=== PATIENT | male | born 1955 ===

== ENCOUNTER 2017-02-18 13:06 | Emergency (ER) | payer OTHER ==
[2017-02-18 13:12] VITALS: PULSE 82; RESP 16; TEMP 98.1; O2SAT 100
--- NOTE | 2017-02-18 13:49 | ED PDOC ---
HPI: Back Time Seen by Provider: 02/18/17 13:27 Chief Complaint (Nursing): Back Pain Chief Complaint (Provider): Back Pain History Per: Patient History/Exam Limitations: no limitations Onset/Duration Of Symptoms: Days (3) Current Symptoms Are (Timing): Still Present Quality Of Discomfort: "Pain" Additional Complaint(s): Pino Santoyo is a 61 y/o male presenting to the ER on 02/18/2017 with complaints of lower back pain for three days. Patient reports he has been experiencing back pain after using a hand truck while at work. Denies any numbness, weakness, tingling sensation, bowel or bladder incontinence, or fevers. Patient did not take any pain medications prior to arrival. Past Medical History Reviewed: Historical Data, Nursing Documentation, Vital Signs Vital Signs: Last Vital Signs Temp 98.1 F 02/18/17 13:08 Pulse 82 02/18/17 13:08 Resp 16 02/18/17 13:08 BP 137/93 H 02/18/17 13:08 Pulse Ox 100 02/18/17 13:08 - Medical History PMH: No Chronic Diseases - Surgical History Surgical History: No Surg Hx - Family History Family History: States: Unknown Family Hx - Social History Current smoker - smoking cessation education provided: No Alcohol: None Drugs: Denies - Home Medications Home Medications: Ambulatory Orders Medication Instructions Recorded Cyclobenzaprine [Flexeril] 5 mg PO Q8H #20 tab 02/18/17 Naproxen 500 mg PO Q12H PRN #20 ect 02/18/17 - Allergies Allergies/Adverse Reactions: Allergies Allergy/AdvReac Type Severity Reaction Status Date / Time No Known Allergies Allergy Verified 02/18/17 13:07 Review of Systems ROS Statement: Except As Marked, All Systems Reviewed And Found Negative Constitutional: Negative for: Fever Genitourinary Male: Negative for: Incontinence Musculoskeletal: Positive for: Back Pain Neurological: Negative for: Weakness, Numbness Physical Exam - Reviewed Nursing Documentation Reviewed: Yes Vital Signs Reviewed: Yes - Physical Exam Appears: Positive for: Non-toxic, No Acute Distress Head Exam: Positive for: ATRAUMATIC, NORMOCEPHALIC Skin: Positive for: Normal Color. Negative for: Rash Eye Exam: Positive for: Normal appearance Neck: Positive for: Normal Cardiovascular/Chest: Positive for: Regular Rate, Rhythm. Negative for: Murmur Respiratory: Positive for: Normal Breath Sounds. Negative for: Respiratory Distress Gastrointestinal/Abdominal: Positive for: Normal Exam, Soft. Negative for: Tenderness Back: Positive for: Normal Inspection, Other ((+) midline tenderness ). Negative for: L CVA Tenderness, R CVA Tenderness Extremity: Positive for: Normal ROM. Negative for: Deformity, Swelling Neurologic/Psych: Positive for: Alert, Oriented. Negative for: Motor/Sensory Deficits - ECG O2 Sat by Pulse Oximetry: 100 Medical Decision Making Medical Decision Makin:27 Initial Impression- 61 y/o male with back pain Initial Plan- * Flexeril 10 mg PO * Naproxen 500 mg * XR LS Spine Flexeril not given in ER because patient is driving home. X-ray without acute findings. Documented by Georges Valero, acting as a scribe for Fidelina Nichols PA-C All medical record entries made by the Scribe were at my direction and personally dictated by me. I have reviewed the chart and agree that the record accurately reflects my personal performance of the history, physical exam, medical decision making, and the department course for this patient. I have also personally directed, reviewed, and agree with the discharge instructions and disposition. Disposition - Clinical Impression Clinical Impression: Back pain - Patient ED Disposition Is Patient to be Admitted: No Counseled Patient/Family Regarding: Diagnosis, Need For Followup, Rx Given - Disposition Referrals: Ayaz Stern MD [Staff Provider] - Disposition: Routine/Home Disposition Time: 14:37 Condition: GOOD Additional Instructions: Please follow-up with PMD or orthopedics. Prescriptions: Cyclobenzaprine [Flexeril] 5 mg PO Q8H #20 tab Naproxen 500 mg PO Q12H PRN #20 ect PRN Reason: pain Instructions: Acute Low Back Pain (ED) Forms: [facility] ([place])
[2017-02-18] MEDS ORDERED: Naproxen 500 MG TAB PO STA (14:13)
--- NOTE | 2017-02-18 14:18 | RAD ---
PROCEDURE: Radiographs of the Lumbar Spine. HISTORY: Low back pain after lifting with hand truck COMPARISON: No prior. FINDINGS: BONES: Normal alignment. No listhesis. No fracture. DISC SPACES: Unremarkable. OTHER FINDINGS: None. IMPRESSION: Unremarkable radiographs of the lumbar spine.
[2017-02-18 14:57] VITALS: BP 132/83
[2017-02-18] MEDS ORDERED: Naproxen 500 MG TAB PO SCH (21:00)
== END 2017-02-18 14:56 | disposition home or self-care (01) ==
LOC: H.ER 13:06
DX: M54.5 Low back pain (principal)